=== PATIENT | female | born 1965 | race Caucasian/White ===

== ENCOUNTER → 2018-04-14 17:42 | Outpatient (CLI) | payer OTHER, SELFPAY ==
--- NOTE | 2018-04-14 18:07 | MRI_ITS ---
STUDY: MRI LUMBAR SPINE WITHOUT CONTRAST REASON FOR EXAM: Female, 53 years old. Low back pain and left sciatica TECHNIQUE: Standardized fat and water weighted pulse sequences were obtained in the sagittal and axial planes. COMPARISON: None FINDINGS: No evidence for acute fracture. 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 Normal disc height, hydration and morphology. Normal bilateral facet joints. Normal central canal and bilateral lateral recesses. Normal bilateral intervertebral neural foramina. Normal lumbar lordosis. There is no substantial scoliosis. Normal conus medullaris that terminates at T12-L1 L1-2: Normal endplates. Normal disc height, hydration and morphology. Normal bilateral facet joints. Normal central canal and bilateral lateral recesses. Normal bilateral intervertebral neural foramina. L2-3: Normal endplates. Normal disc height, hydration and mild annular bulge and small left posterolateral/foraminal disc protrusion. Normal bilateral facet joints. Normal central canal. Mild left lateral recess and neuroforaminal encroachment. L3-4: Normal endplates. Normal disc height, desiccation and mild annular bulge with small left foraminal disc protrusion. Mild facet arthropathy and thickening of ligamenta flava.. Normal central canal. Mild right lateral recess encroachment. Mild left lateral recess and neuroforaminal encroachment L4-5: Normal endplates. Normal disc height, desiccation and minor bulging of the disc and small left foraminal disc protrusion... Bilateral facet arthropathy.. Normal central canal . Mild bilateral recess encroachment.. Mild left neuroforaminal stenosis L5-S1: Normal endplates. Normal disc height, desiccation and normal morphology. Mild facet arthropathy. Normal central canal and bilateral lateral recesses. Normal bilateral intervertebral neural foramina. Normal visualized sacral ala. Normal visualized paraspinous soft tissue structures. MRI/Spine Lumbar (Routine) IMPRESSION: Mild spinal stenosis at L2-3, L3-4 and L4-5 slightly greater on the left secondary to disc disease and bony hypertrophy. Electronically Signed: Forest Michele MD at 20:20 EDT , Service support ,
== END ==
PROVIDERS: Family Provider Family Medicine; PCP Family Medicine; Referring Provider Anesthesiology; Visit Provider Anesthesiology
DX: M51.16 Intervertebral disc disorders with radiculopathy, lumbar region (principal)
CPT/HCPCS: 72148

== ENCOUNTER 2019-12-10 05:37 | Emergency (ER) | payer OTHER, SELFPAY ==
[2019-12-10 05:38] VITALS: BP 160/89; PULSE 74; RESP 16; TEMP 36.3; O2SAT 99; BMI 31.8
--- NOTE | 2019-12-10 05:54 | ED.DCSUM_ITS ---
History of Present Illness Chief Complaint: Nausea/Vomiting/Diarrhea Informant: Patient - Abdominal Pain/Flank Pain Onset: Hours - 10 Context: Gradual Onset Timing: Continuous Quality: Aching Location: Epigastric Current Severity: Moderate Maximum Severity: Moderate Worsened by: Food Relieved by: Nothing - Nausea/Vomiting/Emesis GI Symptom: Nausea, Vomiting Onset: Today Quality: Nonbilious. Negative for: Blood streaks, Coffee ground, Hematemesis Severity: Severe Episodes: 30 - Diarrhea/Melena/Hematochezia GI Symptom: Diarrhea. Negative for: Melena, Hematochezia Stool Quality: Loose Severity: Mild Associated Symptoms: Negative for: Dysuria, Frequency, Hematuria, Urgency Narrative: Patient states she had 2 alcoholic beverages at a friend's house last night (blue drinks that her made w/ vodka), she had not eaten anything but started feeling nauseated, she went home and subsequently started vomiting and had diarrhea. She has been vomiting all night. Her throat has become sore, it was not bothering her before the vomiting. She has not seen any blood. She denies any fevers. Upper abdominal discomfort, but the vomiting started first. She states her friend did not feel well, but she did not come to the hospital, and she does not know if she developed any of the other symptoms. Patient denies any recent antibiotics, travel out of the area, ingesting new sources of ground water, or recent suspicious food intake. Past Medical History - Allergies and Home Meds Allergies/Adverse Reactions: Allergies No Known Allergies Allergy (Verified 12/10/19 05:42) Primary Care Physician: Tyson Interiano III, MD [Primary Care Provider] - 3-5 Days if not improving (Or may return to the ER, especially if you are having trouble keeping down fluids) Past Medical History: None Surgical History: no surgical history Smoking Status: Never smoker Alcohol: Occasional Review of Systems General: Reports: Malaise. Denies: Chills, Fever, Sweats Eyes: Denies: Visual changes - bilaterally, Diplopia ENT: Denies: Rhinorrhea, Sore throat Cardiovascular: Denies: Chest pain, Palpitations Respiratory: Denies: Dyspnea, Cough, Dyspnea on exertion Gastrointestinal: Reports: Abdominal pain, Nausea, Vomiting, Diarrhea. Denies: Melena, Hematochezia Genitourinary: Denies: Dysuria, Hematuria, Frequency Musculoskeletal: Denies: Back pain, Extremity Pain Skin: Denies: Rash, Wounds Neurological: Denies: Headache, Weakness, Numbness Physical Exam Vital Signs/Narrative: Vital Signs Temp Pulse Resp BP Pulse Ox 12/10/19 05:38 97.4 F L 74 16 160/89 H 99 Inital Vital Signs reviewed: Yes General: Well nourished, Well developed, No Acute Distress Head: Normocephalic, Atraumatic Eyes: Perrl, EOMI ENT: Moist mucous membranes, No rhinorrhea, - - soft palate erythemetous, w/ several patches of ?vesicles -- no petechiae or exudates Neck: Supple, Nontender, No lymphadenopathy Cardiovascular: Regular rate, Regular rhythm, No murmurs Respiratory: No distress, CTA bilaterally, Chest nontender Abdomen: Soft, Nondistended, Normal bowel sounds, Tender - Across upper abdomen, worst in epigastrium. Negative for: Guarding, Rebound tenderness Back: Nontender, Normal Inspection. Negative for: CVA tenderness Extremities: Nontender, No edema Skin: Normal color, No rash, No Trauma Neurological: Alert, Oriented x3, Cranial nerves II-XII grossly intact, Normal Strength, Normal Sensation, Normal Gait Psychological: Normal affect, Normal Mood Diagnostic/Tx/Re-eval Laboratory Tests 12/10/19 12/10/19 Range/Units 05:45 05:45 WBC 10.9 (4.4-11.0) K/mm3 RBC 4.73 (4.2-5.4) M/mm3 Hgb 12.7 (12.0-15.0) g/dL Hct 40.1 (37-47) % MCV 84.8 (81-99) fL MCH 26.8 L (27.0-32.0) pg MCHC 31.7 L (32-36) g/dL RDW Std Deviation 49.9 H (35.1-43.9) fl RDW Coeff of Columba 16.2 H (11.6-14.6) % Plt Count 332 (150-450) K/mm3 MPV 9.0 (6.2-12.0) fl Immature Gran % (Auto) 0.500 (0.0-0.9) % Neut % (Auto) 74.0 H (47-70) % Lymph % (Auto) 18.4 L (19-41) % Benton % (Auto) 6.5 (0-10) % Eos % (Auto) 0.4 (0-5) % Baso % (Auto) 0.2 (0-1) % Absolute Neuts (auto) 8.1 H (2.0-7.7) X10^3/uL Absolute Lymphs (auto) 2.00 (0.83-4.51) X10^3/uL Nucleated RBC % 0 (0-5) % Sodium 139 (136-145) mmol/L Potassium 3.7 (3.5-5.1) mmol/L Chloride 103 (98-107) mmol/L Carbon Dioxide 28.0 (21.0-32.0) mmol/L Anion Gap 8 (5-15) BUN 16 (7-18) mg/dL Creatinine 0.88 (0.55-1.02) mg/dL Estim Creat Clear Calc 79.95 ml/min Est GFR (MDRD) Af Amer 87 (>60) mL/min Est GFR (MDRD) Non-Af 72 (>60) mL/min BUN/Creatinine Ratio 18.3 (10-20) RATIO Glucose 112 H (74-106) mg/dL Calcium 9.1 (8.5-10.1) mg/dL Total Bilirubin 0.60 (0.20-1.00) mg/dL AST 17 (15-37) U/L ALT 24 (13-56) U/L Alkaline Phosphatase 52 (45-117) U/L Total Protein 7.7 (6.4-8.2) g/dL Albumin 3.6 (3.2-5.0) g/dL Globulin 4.1 (2.2-4.2) g/dL Albumin/Globulin Ratio 0.9 (0.9-2.4) RATIO Lipase 70 L (73-393) U/L - Medical Decision Making I performed a bedside ultrasound on her gallbladder, she has a negative sonographic Bowles's and no gallstones were seen, along with a grossly normal gallbladder wall. The liver and kidney appear grossly normal as well. Her labs are unremarkable. She is feeling better with IV fluids, antiemetics, and a GI cocktail. I feel comfortable letting her go home with supportive care, I am suspicious what ever was in the beverages is what was making her feel poorly, as she was as well. I do not think a urine drug screen is necessary or will necess arily be beneficial. Her throat is sore but she is able to swallow. The findings suggest possibly infectious pharyngitis, does not necessarily look like strep may be stomatitis, could be viral, she states it was not bothering her until after she was vomiting. Unsure how this is related, but I would not put her on antibiotics at this time. Given a prescription and we discussed reasons to return, and follow-up with her doctor for persistent symptoms. She is comfortable with that plan. ED Disposition - Plan for ED Patient: Disposition: Home or Assisted Living Diagnosis: Gastroenteritis, Upper abdominal pain, Pharyngitis Instructions: ED Gastroenteritis Noninfectious Prescriptions: proMETHazine tablet [Phenergan] 25 mg PO Q6H PRN PRN #10 tab PRN Reason: Nausea Prescription Printed Referrals: Tyson Interiano III, MD [Primary Care Provider] - 3-5 Days if not improving (Or may return to the ER, especially if you are having trouble keeping down fluids)
[2019-12-10 06:02] LABS: Absolute Neutrophil Count 8.1 X10^3/uL (2.0-7.7); Basophil# 0.02 X10^3/uL; Basophil% 0.2 % (0-1); Eosinophil# 0.04 X10^3/uL; Eosinophils% 0.4 % (0-5); Hematocrit 40.1 % (37-47); Hemoglobin 12.7 g/dL (12.0-15.0); Lymphocyte % 18.4 % (19-41); Mean Corp Hgb Conc 31.7 g/dL (32-36); Mean Corpuscular Hgb 26.8 pg (27.0-32.0); Mean Corpuscular Volume 84.8 fL (81-99); Monocyte# 0.71 X10^3/uL; Monocyte% 6.5 % (0-10); NRBC Flagged by Analyzer 0 % (0-5); Neutrophil # 8.07 X10^3/uL (2.7-7.7); Platelet Count 332 K/mm3 (150-450); RBC Distribution Width CV 16.2 % (11.6-14.6); RBC Distribution Width SD 49.9 fl (35.1-43.9); Red Blood Count 4.73 M/mm3 (4.2-5.4); White Blood Count 10.9 K/mm3 (4.4-11.0)
[2019-12-10] MEDS: Mag Hydrox/Al Hydrox/Simeth 30 ML UDC PO (06:13)
[2019-12-10] MEDS: Ondansetron 4 MG/2 ML Vial IV (06:13)
[2019-12-10] MEDS: 0.9% Normal Saline 1,000 ML 1000 ML IV (06:13)
[2019-12-10 06:15] LABS: ALB/GLOB Ratio 0.9 RATIO (0.9-2.4); AST(SGOT) 17 U/L (15-37); Alanine Aminotransfer ALT/SGPT 24 U/L (13-56); Albumin, Serum 3.6 g/dL (3.2-5.0); Alkaline Phosphatase 52 U/L (45-117); Anion Gap 8 (5-15); BUN 16 mg/dL (7-18); BUN/Creat Ratio 18.3 RATIO (10-20); Calcium,Total 9.1 mg/dL (8.5-10.1); Chloride 103 mmol/L (98-107); Creatinine, Serum 0.88 mg/dL (0.55-1.02); EST Glomerular Filtration Rate 72 mL/min (>60); Est Glom Filt Rate - Afr Amer 87 mL/min (>60); Estimated Creatinine Clearance 79.95 ml/min; Globulin 4.1 g/dL (2.2-4.2); Glucose 112 mg/dL (74-106); Lipase 70 U/L (73-393); Potassium 3.7 mmol/L (3.5-5.1); Protein, Total 7.7 g/dL (6.4-8.2); Sodium Level 139 mmol/L (136-145)
[2019-12-10 08:20] VITALS: BP 131/70; PULSE 70; RESP 18; O2SAT 99
== END 2019-12-10 08:27 | disposition home or self-care (01) ==
PROVIDERS: Emergency Provider Emergency Medicine; PCP Family Medicine
DX: K52.9 Noninfective gastroenteritis and colitis, unspecified (principal); R10.10 Upper abdominal pain, unspecified; J02.9 Acute pharyngitis, unspecified
CPT/HCPCS: 80053; 83690; 85025; 96361; 96374; 99285; J7030; A4216; J2405